=== PATIENT | female | born 1985 | race Caucasian/White ===

== ENCOUNTER 2020-05-09 12:49 | Emergency (ER) | payer OTHER ==
[~2020-05-09] VITALS: Ht 149.9 cm; Wt 70.3 kg
[2020-05-09] MEDS ORDERED: LORATADINE 10 MG TABLET PO STA (14:26)
[2020-05-09] MEDS ORDERED: predniSONE 20 MG TABLET PO ONE (14:30)
[2020-05-09] MEDS ORDERED: FAMOTIDINE 20 MG TABLET PO ONE (14:30)
--- NOTE | 2020-05-09 14:42 | NUR ---
Livestock Inspector assumes care- 1st contact with patient, AOX4, patient is for discharge to home, c/o skin rashes, respiration:easy, clear to auscultation. Written and verbal after care instructions given to patient. Patient verbalizes understanding & compliance of instructions. Stressed follow up with her primary doctor or return to ER for worsening s/s. Patient left ER in stable condition.
[2020-05-09] MEDS ORDERED: predniSONE 20 MG TABLET ONE (14:44)
[2020-05-09] MEDS ORDERED: FAMOTIDINE 20 MG TABLET ONE (14:44)
[2020-05-09] MEDS ORDERED: LORATADINE 10 MG TABLET ONE (14:44)
== END 2020-05-09 14:42 | disposition home or self-care (01) ==
LOC: ER 12:49
DX: L50.0 Allergic urticaria (principal); T78.49XA Other allergy, initial encounter; X58.XXXA Exposure to other specified factors, initial encounter; Z91.030 Bee allergy status; Z72.0 Tobacco use; Z86.010 Personal history of colon polyps
CPT/HCPCS: 99284; J7512; A4663